=== PATIENT | male | born 1935 | race Caucasian/White ===

== ENCOUNTER 2018-06-02 07:18 | Emergency (ER) | payer MEDICARE ==
--- NOTE | 2018-06-02 07:42 | ERPHSYRPT ---
- History of Present Illness Time Seen by Provider: 06/02/18 07:28 Source: patient, family, EMS Patient Subjective Stated Complaint: pt here for bleeding from rectum this morning. pt denies any other cos Triage Nursing Assessment: pt arrived per ambulance alert, resp eaas. o2 at 2 nc per home, abd soft, Physician History: The patient is an 83-year-old male brought in by ambulance from home. His gives the history. The patient was feeling week on Monday and slept all day. On he vomited something "dark". He was still weak and wanted to sleep on . He did not have much to drink from Monday until today, Monday. He urinated very little over the course of the illness. He denies any pain. This morning he had a bowel movement while in bed. The bowel movement was "dark". His past medical history is significant for a stroke that affected his vision in his right eye, 3 vessel CABG, numerous cardiac stents, gout, hypertension, high cholesterol, and COPD. He is on Plavix. Timing/Duration: day(s) (3), gradual onset, worse Severity: moderate Modifying Factors: Improves With: nothing Associated Symptoms: vomiting, weakness, No abdominal pain Allergies/Adverse Reactions: No Known Drug Allergies Allergy (Unverified 06/02/18 07:25) Home Medications: Amlodipine Besylate 5 mg [Norvasc 5 mg] 5 mg DAILY 06/02/18 [History] Atorvastatin Calcium 10 mg DAILY 06/02/18 [History] Clopidogrel Bisulfate [Clopidogrel] 75 mg DAILY 06/02/18 [History] Fluticasone/Salmeterol [Advair 250-50 Diskus] 1 ea DAILY 06/02/18 [History] Metoprolol Tartrate 50 mg [Lopressor 50 MG] 50 mg DAILY 06/02/18 [History] Nitroglycerin 0.2 mg/Hr [Nitro-Dur 0.2 mg/Hr] 0.2 mg DAILY 06/02/18 [ History] Prednisone 10 mg [Deltasone 10 mg] 10 mg DAILY 06/02/18 [History] predniSONE [Prednisone] 5 mg DAILY 06/02/18 [History] Hx Influenza Vaccination/Date Given: No Hx Pneumococcal Vaccination/Date Given: No Immunizations Up to Date: Yes - Review of Systems Constitutional: No Fever, No Chills Eyes: No Symptoms Ears, Nose, & Throat: No Symptoms Respiratory: No Cough, No Dyspnea Cardiac: No Chest Pain, No Edema, No Syncope Abdominal/Gastrointestinal: Vomiting, Hematemesis, Melena, No Abdominal Pain, No Nausea Genitourinary Symptoms: No Dysuria Musculoskeletal: No Back Pain, No Neck Pain Skin: No Rash Neurological: No Dizziness, No Focal Weakness, No Sensory Changes Psychological: No Symptoms Endocrine: No Symptoms Hematologic/Lymphatic: No Symptoms Immunological/Allergic: No Symptoms All Other Systems: Reviewed and Negative - Past Medical History Pertinent Past Medical History: Yes Neurological History: Stroke Cardiac History: Coronary Artery Disease Respiratory History: COPD - Past Surgical History Past Surgical History: No Cardiac: CABG, Cardiac Catheterization, Cardiac Stent - Social History Smoking Status: Former smoker Exposure to second hand smoke: No Drug Use: none Patient Lives Alone: No - Nursing Vital Signs Nursing Vital Signs: Initial Vital Signs Temperature 97.7 F 06/02/18 07:19 Pulse Rate 72 06/02/18 07:19 Respiratory Rate 18 06/02/18 07:19 Blood Pressure 124/71 06/02/18 07:19 O2 Sat by Pulse Oximetry 90 L 06/02/18 07:19 Pain Scale Pain Intensity 0 - Physical Exam General Appearance: mild distress Eye Exam: PERRL/EOMI, eyes nml inspection Ears, Nose, Throat Exam: TMs normal, pharynx normal, moist mucous membranes, dry mucous membranes Neck Exam: normal inspection, non-tender, supple, full range of motion Respiratory Exam: normal breath sounds, lungs clear, No respiratory distress Cardiovascular Exam: regular rate/rhythm, normal heart sounds, normal peripheral pulses Gastrointestinal/Abdomen Exam: soft, normal bowel sounds, No tenderness, No mass Rectal Exam: not done Back Exam: normal inspection, normal range of motion, No CVA tenderness, No vertebral tenderness Extremity Exam: normal inspection, normal range of motion, pelvis stable Neurologic Exam: alert Skin Exam: normal color, warm, dry, No rash Lymphatic Exam: No adenopathy SpO2 Interpretation: normal SpO2: 90 Oxygen Delivery: Nasal Cannula (2L) - CT Exams Abdomen/Pelvis CT Interpretation: Tele-radiologist Report (per Dr Fink), Other (thickening wall of gastric antrum and proximal duidenum with mild surrounding inflammatory stranding: enteritis/duodenitis.) Ordered Tests: Active Orders 24 hr Category Date Time Status Front End Web Developer STAT Care 06/02/18 07:49 Active Clean Catch Urine Specimen STAT Care 06/02/18 07:48 Active IV Insertion STAT Care 06/02/18 07:48 Active NPO (ED) STAT Care 06/02/18 07:48 Active Oxygen-ED Only NASAL CANNULA 2 lpm Care 06/02/18 07:48 Active ABDOMEN AND PELVIS W/0 CONTRAS [CT] Stat Exams 06/02/18 07:49 Taken BMP Stat Lab 06/02/18 08:00 Completed CBC W DIFF Stat Lab 06/02/18 08:00 Completed LIPASE Stat Lab 06/02/18 08:53 Completed Lactic Acid Stat Lab 06/02/18 08:00 Results Manual Differential NC Stat Lab 06/02/18 08:00 Completed Occult Blood,Stool Other Stat Lab 06/02/18 08:00 Completed UA W/ MICROSCOPIC Stat Lab 06/02/18 08:50 Completed Medication Summary Discontinued Medications Generic Name Dose Route Start Last Admin Trade Name Freq PRN Reason Stop Dose Admin Sodium Chloride 1,000 mls @ 999 mls/hr 06/02/18 07:48 06/02/18 08:00 Sodium Chloride 0.9% 1000 Ml IV 06/02/18 08:48 999 mls/hr .Q1H1M STA Administration Sodium Chloride Confirm 06/02/18 07:56 Sodium Chloride 0.9% 1000 Ml Administered 06/02/18 07:57 Dose 1,000 mls @ ud .ROUTE .STK-MED ONE Ondansetron HCl 4 mg 06/02/18 07:48 06/02/18 07:59 Zofran 4 Mg/2 Ml Vial IV 06/02/18 07:49 4 mg STAT ONE Administration Ondansetron HCl Confirm 06/02/18 07:56 Zofran 4 Mg/2 Ml Vial Administered 06/02/18 07:57 Dose 4 mg .ROUTE .STK-MED ONE Pantoprazole Sodium 40 mg 06/02/18 07:48 06/02/18 07:59 Protonix 40 Mg Iv IV 06/02/18 07:49 40 mg STAT ONE Administration Pantoprazole Sodium Confirm 06/02/18 07:56 Protonix 40 Mg Iv Administered 06/02/18 07:57 Dose 40 mg IV .STK-MED ONE Lab/Rad Data: Laboratory Result Diagrams 06/02/18 08:00 06/02/18 08:00 Laboratory Results 06/02/18 06/02/18 06/02/18 Range/Units 08:53 08:50 08:00 WBC (4.0-10.5) K/mm3 RBC (4.1-5.6) M/mm3 Hgb (12.5-18.0) gm/dl Hct (42-50) % MCV (78-100) fl MCH (26-32) pg MCHC (32-36) g/dl RDW (11.5-14.0) % Plt Count (150-450) K/mm3 MPV (6-9.5) fl Absolute Granulocytes (1.4-6.9) Segmented Neutrophils (36.-66.) % Band Neutrophils (0.0-2.0) % Lymphocytes (Manual) (24-44) % Monocytes (Manual) (0.0-12.0) % Platelet Estimate (NORMAL) RBC Morphology Sodium (137-145) mmol/L Potassium (3.5-5.1) mmol/L Chloride (98-107) mmol/L Carbon Dioxide (22-30) mmol/L Anion Gap (5-15) MEQ/L BUN (9-20) mg/dL Creatinine (0.66-1.25) mg/dL Estimated GFR ML/MIN Glucose (74-106) mg/dL Lactic Acid (0.4-2.0) Calcium (8.4-10.2) mg/dL Lipase 78 (23-300) U/L Ur Collection Type CCMS Urine Color YELLOW (YELLOW) Urine Appearance CLEAR (CLEAR) Urine pH 5.0 (5-6) Ur Specific [place] 1.020 (1.005-1.025) Urine Protein NEGATIVE (Negative) Urine Ketones NEGATIVE (NEGATIVE) Urine Blood 5-10 (0-5) Julian/ul Urine Nitrite NEGATIVE (NEGATIVE) Urine Bilirubin NEGATIVE (NEGATIVE) Urine Urobilinogen NORMAL (0-1) mg/dL Ur Leukocyte Esterase NEGATIVE (NEGATIVE) Urine Microscopic RBC 0-2 (0-2) /HPF Urine Microscopic WBC 0-2 (0-5) /HPF Ur Epithelial Cells RARE (FEW) /HPF Urine Culture Reflexed NO (NO) Urine Glucose NEGATIVE (NEGATIVE) mg/dL Stool Occult Blood POSITIVE (Negative) Specimen Received 0850 06/02/18 06/02/18 06/02/18 06/02/18 Range/Units 08:00 08:00 08:00 WBC 17.5 H (4.0-10.5) K/mm3 RBC 2.64 L (4.1-5.6) M/mm3 Hgb 8.3 L (12.5-18.0) gm/dl Hct 25.3 L (42-50) % MCV 95.8 (78-100) fl MCH 31.4 (26-32) pg MCHC 32.8 (32-36) g/dl RDW 14.6 H (11.5-14.0) % Plt Count 226 (150-450) K/mm3 MPV 11.0 H (6-9.5) fl Absolute Granulocytes 11.97 H (1.4-6.9) Segmented Neutrophils 71 H (36.-66.) % Band Neutrophils 1 (0.0-2.0) % Lymphocytes (Manual) 22 L (24-44) % Monocytes (Manual) 6 (0.0-12.0) % Platelet Estimate NORMAL (NORMAL) RBC Morphology NORMAL Sodium 141 (137-145) mmol/L Potassium 3.9 (3.5-5.1) mmol/L Chloride 109 H (98-107) mmol/L Carbon Dioxide 23 (22-30) mmol/L Anion Gap 13.3 (5-15) MEQ/L BUN 61 H (9-20) mg/dL Creatinine 1.10 (0.66-1.25) mg/dL Estimated GFR > 60.0 ML/MIN Glucose 102 (74-106) mg/dL Lactic Acid 2.1 H (0.4-2.0) Calcium 9.1 (8.4-10.2) mg/dL Lipase (23-300) U/L Ur Collection Type Urine Color (YELLOW) Urine Appearance (CLEAR) Urine pH (5-6) Ur Specific [place] (1.005-1.025) Urine Protein (Negative) Urine Ketones (NEGATIVE) Urine Blood (0-5) Julian/ul Urine Nitrite (NEGATIVE) Urine Bilirubin (NEGATIVE) Urine Urobilinogen (0-1) mg/dL Ur Leukocyte Esterase (NEGATIVE) Urine Microscopic RBC (0-2) /HPF Urine Microscopic WBC (0-5) /HPF Ur Epithelial Cells (FEW) /HPF Urine Culture Reflexed (NO) Urine Glucose (NEGATIVE) mg/dL Stool Occult Blood (Negative) Specimen Received - Progress Progress: improved Discussed with : Jason (wants pt transferred to [facility]) Counseled pt/family regarding: lab results, diagnosis, rad results - Departure Time of Disposition: 09:36 Departure Disposition: Transfer (transfer to [facility] per Dr Armando and Dr Jordan) Clinical Impression: GI bleed, Anemia Condition: Stable Critical Care Time: No Referrals: NITA ARMANDO MD [Primary Care Provider] -
[2018-06-02] MEDS ORDERED: PROTONIX 40 MG IV IV ONE ×2 (07:48→07:56)
[2018-06-02] MEDS ORDERED: Zofran 4 MG/2 ML VIAL IV ONE (07:48)
[2018-06-02] MEDS ORDERED: Sodium Chloride 0.9% 1000 ML 1,000 ML IV STA (07:48)
[2018-06-02] MEDS ORDERED: Zofran 4 MG/2 ML VIAL ONE (07:56)
[2018-06-02] MEDS ORDERED: Sodium Chloride 0.9% 1000 ML 1,000 ML ONE (07:56)
[2018-06-02 08:05] LABS: Lactic Acid 2.1 (0.4-2.0)
[2018-06-02 08:21] LABS: Hematocrit 25.3 % (42-50); Hemoglobin 8.3 gm/dl (12.5-18.0); Mean Cell Volume 95.8 fl (78-100); Mean Corpuscular Hemoglobin 31.4 pg (26-32); Mean Corpuscular Hgb Concent. 32.8 g/dl (32-36); Platelet Count 226 K/mm3 (150-450); Red Blood Count 2.64 M/mm3 (4.1-5.6); Red Cell Distribution Width 14.6 % (11.5-14.0); White Blood Count 17.5 K/mm3 (4.0-10.5)
[2018-06-02 08:23] LABS: Granulocyte Absolute (ANC) 11.97 (1.4-6.9)
[2018-06-02 08:27] LABS: ANION GAP 13.3 MEQ/L (5-15); BLOOD UREA NITROGEN 61 mg/dL (9-20); CHLORIDE 109 mmol/L (98-107); Calcium 9.1 mg/dL (8.4-10.2); Carbon Dioxide 23 mmol/L (22-30); Glucose 102 mg/dL (74-106); Potassium 3.9 mmol/L (3.5-5.1); SODIUM 141 mmol/L (137-145)
[2018-06-02 09:10] LABS: Appearance CLEAR (CLEAR); Bilirubin NEGATIVE (NEGATIVE); Glucose NEGATIVE (NEGATIVE); Ketones NEGATIVE (NEGATIVE); Leukocyte Esterase NEGATIVE (NEGATIVE); Nitrite NEGATIVE (NEGATIVE); Protein,Urine Dip NEGATIVE (Negative); Urobilinogen NORMAL mg/dL (0-1)
[2018-06-02 09:17] LABS: BAND 1 % (0.0-2.0); Lymphocytes 22 % (24-44); Monocyte 6 % (0.0-12.0); Neutrophils 71 % (36.-66.); Platelet Estimate NORMAL (NORMAL); Total Cells Counted 100
[2018-06-02 09:25] LABS: Epithelial Cells RARE /HPF (FEW); RBC 0-2 /HPF (0-2); WBC 0-2 /HPF (0-5)
[2018-06-02 10:09] VITALS: BP 124/68; PULSE 70; O2SAT 97
--- NOTE | 2018-06-02 20:58 | XRAY ---
Indication: GI bleed. Nausea, vomiting, and diarrhea. Multiple contiguous axial images obtained through the abdomen and pelvis without contrast as ordered. Comparison: None Lung bases demonstrate scattered fibrosis/scarring, left greater than right. No infiltrate or effusion. Heart is not enlarged. Noncontrasted stomach and bowel loops appear nonobstructed. Antral portion of the stomach and proximal descending duodenum demonstrates mild stranding, possible gastroduodenitis. Normal appendix. No free fluid/air. Previous cholecystectomy. A few bilateral renal cysts, largest right midpole measuring 1.8 cm. Remaining liver, pancreas, spleen, adrenal glands, kidneys, ureters, and bladder appear unremarkable for noncontrast exam. Heavy scattered vascular calcifications. No AAA. Osseous structures intact with osteopenia and moderate degenerative changes throughout the spine. Impression: 1. Gastric antral and proximal duodenal stranding. Rule out gastroduodenitis. 2. Bilateral renal cysts and heavy scattered vascular calcifications. Comment: Preliminary interpretation was made by C. No critical discrepancy. CTDI 22.47
== END 2018-06-02 10:13 | disposition short-term general hospital (02) ==
LOC: ED 07:18
DX: K92.2 Gastrointestinal hemorrhage, unspecified (principal); D64.9 Anemia, unspecified; Z79.899 Other long term (current) drug therapy; R11.10 Vomiting, unspecified; R53.1 Weakness
CPT/HCPCS: 36415; 74176; 80048; 81000; 82272; 83605; 83690; 85025; 93041; 96360; 96361; 96374; 96375; 99285; J2405